=== PATIENT | female | born 1955 | race African-American/Black ===

== ENCOUNTER → 2016-12-22 | Outpatient (CLI) | payer OTHER ==
[~2016-12-22] MED LIST: ACTOS 30 MG TAB30 MG PO; ANASTROZOLE1 MG PO; AVANDIA PO; AVELOX400 MG PO; COMPAZINE10 M1 PO; DIOVAN HCT 3201 EAC1 PO; FEOSOL PO; GLUCOPHAGE1000 MG PO; GLYBURIDE 5 MG T5 M1 PO; IMODIUM ADVANC1 EAC1 PO; IRON325 PO; KLOR-CON PO; LIPITOR PO; METFORMIN PO; MULTIVITAMINS PO; REGLAN 5 MG TAB5 M1 PO
== END ==
LOC: RAD 01:14
DX: Z12.31 Encounter for screening mammogram for malignant neoplasm of breast (principal)